=== PATIENT | female | born 1945 | race Caucasian/White ===

== ENCOUNTER 2017-12-19 14:47 | Outpatient (CLI) | payer MEDICARE, OTHER | END 2017-12-19 14:48 | disposition home or self-care (01) | LOC: BICMAMMO 14:47 | PROVIDERS: ATTEND Family Medicine | DX: Z12.31 Encounter for screening mammogram for malignant neoplasm of breast (principal) | CPT/HCPCS: 77063; 77067 ==

== ENCOUNTER 2019-01-28 13:08 | Outpatient (CLI) | payer MEDICARE ==
--- NOTE | 2019-02-03 13:22 | MMO ---
Bilateral MAMMO Bilat Screen [facility]. CLINICAL HISTORY: Patient is 73 years old and is seen for screening. The patient has the following family history of breast cancer: mother. The patient has no personal history of cancer. VIEWS: The views performed were: bilateral craniocaudal with tomosynthesis and bilateral mediolateral oblique with tomosynthesis. FILMS COMPARED: The present examination has been compared to prior imaging studies performed at [facility] on 12/19/2017, and at [facility] on 04/09/2013, 04/10/2014, 04/22/2015 and 09/28/2016. MAMMOGRAM FINDINGS: There are stable benign appearing calcifications seen in both breasts. There are no suspicious masses, calcifications or areas of architectural distortion. IMPRESSION: THERE IS NO MAMMOGRAPHIC EVIDENCE OF MALIGNANCY. A ROUTINE FOLLOW-UP MAMMOGRAM IN 1 YEAR IS RECOMMENDED. THE RESULTS OF THIS EXAM WERE SENT TO THE PATIENT. ACR BI-RADS Category 2 - Benign finding MAMMOGRAPHY NOTE: 1. A negative mammogram report should not delay a biopsy if a dominant of clinically suspicious mass is present. 2. Approximately 10% to 15% of breast cancers are not detected by mammography. 3. Adenosis and dense breasts may obscure an underlying neoplasm.
== END 2019-01-28 13:09 | disposition home or self-care (01) ==
LOC: BICMAMMO 13:08
PROVIDERS: ATTEND Family Medicine
DX: Z12.31 Encounter for screening mammogram for malignant neoplasm of breast (principal); Z80.3 Family history of malignant neoplasm of breast
CPT/HCPCS: 77063; 77067

== ENCOUNTER 2019-03-25 14:27 | Outpatient (CLI) | payer MEDICARE | END 2019-03-25 14:28 | disposition home or self-care (01) | LOC: ULT 14:27 | PROVIDERS: ATTEND Family Medicine | DX: I08.3 Combined rheumatic disorders of mitral, aortic and tricuspid valves (principal) | CPT/HCPCS: 93306 ==

== ENCOUNTER 2019-03-26 13:47 | Outpatient (CLI) | payer MEDICARE ==
--- NOTE | 2019-03-26 14:19 | RAD ---
EXAM: 4 views of the right knee HISTORY: Knee pain COMPARISON: None FINDINGS: No knee effusion is seen. There is no evidence of acute fracture or dislocation. Moderate t ricompartmental osteophytes are seen consistent with osteoarthritis. No soft tissue swelling is present. IMPRESSION: Moderate right knee osteoarthritis
--- NOTE | 2019-03-26 14:42 | BD ---
BONE DENSITOMETRY USING DEXA: Date: 03/26/19 HISTORY: Postmenopausal screening for osteoporosis. FINDINGS: Lumbar Spine: BMD (g/cm2) L1 0.888 T-Score: -0.9 Z-Score: 1.0 L2 0.975 T-Score: -0.5 Z-Score: 1.7 L3 0.853 T-Score: -2.1 Z-Score: 0.2 L4 0.831 T-Score: -2.1 Z-Score: 0.3 L1-L4 0.885 T-Score: -1.5 Z-Score: 0.7 Femoral Neck: 0.715 T-Score: -1.2 Z-Score: 0.7 Total Femur: 0.859 T-Score: -0.7 Z-Score: 0.9 There has been interval improvement of 2.1% in the bone mineral density of the lumbar spine and a red uction of 4.7% in the bone mineral density of the proximal femur since 09/28/16. The 10 year fracture risk for a major osteoporotic fracture is 9.3% and for a hip fracture is 1.2%. IMPRESSION: Osteopenia. POS: [facility]
== END 2019-03-26 13:48 | disposition home or self-care (01) ==
LOC: BICMAMMO 13:47
PROVIDERS: ATTEND Family Medicine
DX: M25.561 Pain in right knee (principal); Z78.0 Asymptomatic menopausal state; M17.11 Unilateral primary osteoarthritis, right knee; M85.89 Other specified disorders of bone density and structure, multiple sites
CPT/HCPCS: 77080

== ENCOUNTER 2021-12-07 10:34 | Outpatient (CLI) | payer MEDICARE | END 2021-12-07 10:35 | disposition home or self-care (01) | LOC: BICMAMMO 10:34 | PROVIDERS: ATTEND Family Medicine | DX: Z13.820 Encounter for screening for osteoporosis (principal); Z78.0 Asymptomatic menopausal state; M85.88 Other specified disorders of bone density and structure, other site | CPT/HCPCS: 77080 ==